=== PATIENT | female | born 1935 | race Caucasian/White ===

== ENCOUNTER 2018-12-29 09:30 | Outpatient (REF) | payer MEDICARE, OTHER, SELFPAY ==
--- NOTE | 2018-12-29 09:30 | SKI_PTH ---
PATIENT: Franklin Adams LOC: [facility] U#:[id number] AGE/SX: 83/F ROOM: RE12/29/[address]: Luisana Campos : 1935 BED: DIS: 12/29/2018 SPEC #: [id number] RECD: 12/30/18 12:15 STATUS: [place] RE #: [id number] DANILO: 12/29/18 09:[address]: Luisana Campos DEPT: Surgical Specimen RECD BY: Rekha Deras Tissues: 1 - SKIN BIOPSY(SHAVE/PUNCH) 2 - SKIN BIOPSY(SHAVE/PUNCH) Procedures: SKIN LEVEL 4 Comments: [id number]
== END 2018-12-29 09:50 ==
LOC: NCHCN 09:30
PROVIDERS: PCP Family Medicine; Visit Provider Family Medicine
DX: L57.0 Actinic keratosis (principal); D04.39 Carcinoma in situ of skin of other parts of face
CPT/HCPCS: 88305

== ENCOUNTER 2020-11-26 15:47 | Outpatient (REF) | payer MEDICARE, OTHER, SELFPAY ==
[2020-11-26 14:00] LABS: HCT 41.7 % (36.0-46.0); HGB 13.4 g/dL (11.2-15.7); MCH 28.3 pg (27.0-33.0); MCHC 32.1 % (32.0-36.0); MCV 88.2 fL (80-95); MPV 10.6 fL (8.0-11.0); Platelet Count 234 10^3/uL (130-400); RBC 4.73 10^6/uL (3.93-5.22); RDW 13.2 % (11.7-14.6); RDW-SD 42.6 fL; WBC 5.53 10^3/uL (4.4-10.8)
[2020-11-26 14:08] LABS: Anion Gap 8.5 mmol/L (3-11); BUN 17 mg/dL (7-18); CO2 26.5 mmol/L (21.0-32.0); CREATININE 0.8 mg/dL (0.55-1.02); Calcium 9.1 mg/dL (8.5-10.1); Chloride 105 mmol/L (98-107); Glucose 102 mg/dL (74-106); Potassium 4.5 mmol/L (3.5-5.1); Sodium 140 mmol/L (136-145)
== END 2020-11-26 15:48 | disposition home or self-care (01) ==
LOC: NCHCN 15:47
PROVIDERS: PCP Family Medicine; Visit Provider Family Medicine
DX: I48.0 Paroxysmal atrial fibrillation (principal); I10 Essential (primary) hypertension; N28.9 Disorder of kidney and ureter, unspecified
CPT/HCPCS: 80048; 85027

== ENCOUNTER 2022-01-07 17:51 | Outpatient (REF) | payer MEDICARE, OTHER, SELFPAY ==
[2022-01-07 21:31] LABS: Anion Gap 4.3 mmol/L (3-11); BUN 21 mg/dL (7-18); CO2 28.7 mmol/L (21.0-32.0); Chloride 100 mmol/L (98-107); Estimated GFR 55.21 (mL/min/1.73m2); Glucose 97 mg/dL (74-106); Potassium 4.6 mmol/L (3.5-5.1); Sodium 133 mmol/L (136-145)
== END 2022-01-07 17:52 | disposition home or self-care (01) ==
LOC: NCHCN 17:51
PROVIDERS: PCP Family Medicine; Visit Provider Family Medicine
DX: I10 Essential (primary) hypertension (principal)
CPT/HCPCS: 80048

== ENCOUNTER 2022-07-06 22:02 | Outpatient (REF) | payer MEDICARE, OTHER, SELFPAY ==
[2022-07-06 22:08] LABS: HCT 44.8 % (36.0-46.0); HGB 14.4 g/dL (11.2-15.7); MCH 28.2 pg (27.0-33.0); MCHC 32.1 % (32.0-36.0); MCV 88 fL (80-95); MPV 10.3 fL (8.0-11.0); Platelet Count 242 10^3/uL (130-400); RDW 12.7 % (11.7-14.6); RDW-SD 41.2 fL; WBC 6.15 10^3/uL (4.4-10.8)
[2022-07-06 22:12] LABS: Anion Gap 6.7 mmol/L (3-11); BUN 27 mg/dL (7-18); CO2 28.3 mmol/L (21.0-32.0); CREATININE 1.1 mg/dL (0.55-1.02); Calcium 9.2 mg/dL (8.5-10.1); Chloride 101 mmol/L (98-107); Estimated GFR 49.24 (mL/min/1.73m2); Glucose 115 mg/dL (74-106); Potassium 4.3 mmol/L (3.5-5.1); Sodium 136 mmol/L (136-145)
== END 2022-07-06 22:03 | disposition home or self-care (01) ==
LOC: NCHCN 22:02
PROVIDERS: PCP Family Medicine; Visit Provider Family Medicine
DX: N18.9 Chronic kidney disease, unspecified (principal); Z51.81 Encounter for therapeutic drug level monitoring; I10 Essential (primary) hypertension; I48.0 Paroxysmal atrial fibrillation
CPT/HCPCS: 80048; 85027

== ENCOUNTER 2023-01-04 16:12 | Outpatient (REF) | payer MEDICARE, OTHER, SELFPAY ==
[2023-01-04 21:06] LABS: Abs Immature Grans 0.02 10^3/uL (0.0-0.06); Absolute Basophil Count 0.03 10^3/uL (0.0-0.2); Absolute Eosinophil Count 0.12 10^3/uL (0.0-0.7); Absolute Lymphocyte Count 1.06 10^3/uL (1.2-3.4); Absolute Monocyte Count 0.58 10^3/uL (0.1-0.8); Absolute Neutrophil Count 4.09 10^3/uL (1.2-6.7); Basophils % 0.5; HGB 14.3 g/dL (11.2-15.7); Immature Grans % 0.3; MCH 28.4 pg (27.0-33.0); MCHC 32.5 % (32.0-36.0); MCV 87 fL (80-95); MPV 9.9 fL (8.0-11.0); Monocytes % 9.8; Neutrophils % 69.4; Platelet Count 242 10^3/uL (130-400); RBC 5.04 10^6/uL (3.93-5.22); RDW-SD 41.6 fL
[2023-01-04 21:18] LABS: Anion Gap 6.3 mmol/L (3-11); BUN 26 mg/dL (7-18); CO2 27.7 mmol/L (21.0-32.0); Calcium 9.5 mg/dL (8.5-10.1); Chloride 101 mmol/L (98-107); Estimated GFR 54.87 (mL/min/1.73m2); Glucose 102 mg/dL (74-106); Magnesium 2.3 mg/dL (1.8-2.4); Potassium 4.2 mmol/L (3.5-5.1); Sodium 135 mmol/L (136-145)
== END 2023-01-04 16:13 | disposition home or self-care (01) ==
LOC: NCHCN 16:12
PROVIDERS: PCP Family Medicine; Visit Provider Family Medicine
DX: R55 Syncope and collapse (principal)
CPT/HCPCS: 80048; 83735; 85025

== ENCOUNTER 2023-08-26 16:14 | Outpatient (REF) | payer MEDICARE, OTHER, SELFPAY ==
[2023-08-26 20:45] LABS: HCT 44.9 % (36.0-46.0); HGB 14.3 g/dL (11.2-15.7); MCH 27.1 pg (27.0-33.0); MCHC 31.8 % (32.0-36.0); MCV 85 fL (80-95); MPV 9.8 fL (8.0-11.0); Platelet Count 282 10^3/uL (130-400); RBC 5.28 10^6/uL (3.93-5.22); RDW 13.3 % (11.7-14.6); WBC 6.94 10^3/uL (4.4-10.8)
[2023-08-26 21:04] LABS: ALT 31 U/L (14-59); AST 30 U/L (15-37); Albumin 3.5 g/dL (3.4-5.0); Alkaline Phosphatase 153 U/L (46-116); BUN 25 mg/dL (7-18); Bilirubin, Total 1.77 mg/dL (0.2-1.0); Calcium 9.3 mg/dL (8.5-10.1); Chloride 99 mmol/L (98-107); Estimated GFR 54.53 (mL/min/1.73m2); Glucose 131 mg/dL (74-106); Potassium 4.2 mmol/L (3.5-5.1); Sodium 134 mmol/L (136-145); TSH (W/Ref FT4) 0.47 uIU/mL (0.36-3.74); Total Protein 8.1 g/dL (6.4-8.2)
[2023-08-26 21:21] LABS: C-Reactive Protein 2.11 mg/dL (<or=0.5)
[2023-08-27 17:51] LABS: Rheumatoid Factor <8.6 IU/mL (<12.0)
[2023-08-30 09:54] LABS: Cyclic Citrullinated Peptide <2.5 U/mL (<5.0)
== END 2023-08-26 16:15 | disposition home or self-care (01) ==
LOC: NCHCN 16:14
PROVIDERS: PCP Family Medicine; Visit Provider Family Medicine
DX: R53.83 Other fatigue (principal); M06.9 Rheumatoid arthritis, unspecified; M19.09 Primary osteoarthritis, other specified site; R74.8 Abnormal levels of other serum enzymes; I10 Essential (primary) hypertension; R79.89 Other specified abnormal findings of blood chemistry; I48.91 Unspecified atrial fibrillation; Z79.01 Long term (current) use of anticoagulants
CPT/HCPCS: 80053; 85027; 86200; 84443; 86140; 86431

== ENCOUNTER 2023-09-01 18:46 | Outpatient (REF) | payer MEDICARE, OTHER, SELFPAY ==
[2023-09-01 22:29] LABS: Vitamin D 25 Total 45.7 ng/mL (30-100)
[2023-09-01 22:42] LABS: GGT 122 U/L (5-55); LDH 240 U/L (81-234)
== END 2023-09-01 18:47 | disposition home or self-care (01) ==
LOC: NCHCN 18:46
PROVIDERS: PCP Family Medicine; Visit Provider Family Medicine
DX: R74.8 Abnormal levels of other serum enzymes (principal); Z79.899 Other long term (current) drug therapy
CPT/HCPCS: 82306; 82977; 83615

== ENCOUNTER 2023-10-22 18:56 | Outpatient (REF) | payer MEDICARE, OTHER, SELFPAY ==
[2023-10-22 15:42] LABS: HCT 43.4 % (36.0-46.0); HGB 13.9 g/dL (11.2-15.7); MCH 27.5 pg (27.0-33.0); MCV 86 fL (80-95); MPV 9.5 fL (8.0-11.0); Platelet Count 280 10^3/uL (130-400); RBC 5.06 10^6/uL (3.93-5.22); RDW 14.8 % (11.7-14.6); RDW-SD 46.8 fL; WBC 6.67 10^3/uL (4.4-10.8)
[2023-10-22 16:12] LABS: ALT 30 U/L (14-59); AST 30 U/L (15-37); Albumin 3.4 g/dL (3.4-5.0); Alkaline Phosphatase 153 U/L (46-116); Anion Gap 7.7 mmol/L (3-11); BUN 19 mg/dL (7-18); Bilirubin, Total 1.18 mg/dL (0.2-1.0); CO2 27.3 mmol/L (21.0-32.0); CREATININE 0.9 mg/dL (0.55-1.02); Calcium 9.6 mg/dL (8.5-10.1); Chloride 100 mmol/L (98-107); Estimated GFR 61.87 (mL/min/1.73m2); Glucose 90 mg/dL (74-106); Potassium 4.5 mmol/L (3.5-5.1); Sodium 135 mmol/L (136-145); Total Protein 7.6 g/dL (6.4-8.2)
== END 2023-10-22 18:57 | disposition home or self-care (01) ==
LOC: NCHCN 18:56
PROVIDERS: PCP Family Medicine; Visit Provider Family Medicine
DX: R63.4 Abnormal weight loss (principal)
CPT/HCPCS: 80053; 85027

== ENCOUNTER 2025-01-05 16:49 | Outpatient (REF) | payer MEDICARE, OTHER, SELFPAY ==
[2025-01-05 21:17] LABS: Abs Immature Grans 0.01 10^3/uL (0.0-0.06); HCT 41.6 % (36.0-46.0); HGB 13.4 g/dL (11.2-15.7); Immature Grans % 0.2 %; MCH 28.3 pg (27.0-33.0); MCHC 32.2 % (32.0-36.0); MCV 88 fL (80-95); MPV 10.0 fL (8.0-11.0); Platelet Count 232 10^3/uL (130-400); RBC 4.73 10^6/uL (3.93-5.22); RDW 12.9 % (11.7-14.6); RDW-SD 41.6 fL; WBC 6.00 10^3/uL (4.4-10.8)
[2025-01-05 21:19] LABS: ESR 9 mm/hr (0-30)
[2025-01-05 21:32] LABS: C-Reactive Protein < 0.50 mg/dL (<or=0.5)
== END 2025-01-05 16:50 | disposition home or self-care (01) ==
LOC: NCHCN 16:49
PROVIDERS: Physician Assistant; PCP Family Medicine; Visit Provider Family Medicine
DX: Z96.652 Presence of left artificial knee joint (principal)
CPT/HCPCS: 85652; 85025; 86140